=== PATIENT | female | born 1990 | race African-American/Black ===

== ENCOUNTER 2018-08-11 13:17 | Day surgery (SDC) | payer OTHER ==
[2018-08-02 13:53] VITALS: BMI 21.9
[2018-08-11] MEDS ORDERED: BUPIVACAINE HCL/PF 2.5 MG/ML - 30 ML VIAL IJ ONE (14:53)
[2018-08-11] MEDS ORDERED: MIDAZOLAM HCL 2 MG/2 ML SINGLE DOSE VIAL ONE (15:10)
[2018-08-11] MEDS ORDERED: PROPOFOL 20 ML ONE ×2 (15:18)
[2018-08-11] MEDS ORDERED: SUCCINYLCHOLINE CHLORIDE 200 MG/10 ML VIAL ONE (15:18)
[2018-08-11] MEDS ORDERED: LIDOCAINE HCL/PF 2% SDV 5ML VIAL ONE (15:19)
[2018-08-11] MEDS ORDERED: DEXAMETHASONE SOD PHOSPHATE 4 MG/1 ML VIAL ONE (15:19)
[2018-08-11] MEDS ORDERED: ONDANSETRON 4 MG/2 ML VIAL ONE ×2 (15:19→17:00)
[2018-08-11] MEDS ORDERED: methylPREDNISolone ACET (DEPO) 40 MG/1 ML VIAL ONE (16:14)
[2018-08-11] MEDS ORDERED: BENZOIN/ALOE VERA/STORAX/TOLU 58 ML BOTTLE ONE (16:22)
[2018-08-11] MEDS ORDERED: PROMETHAZINE HCL 25 MG/1 ML VIAL IVPB PRN (16:44)
[2018-08-11] MEDS ORDERED: ONDANSETRON 4 MG/2 ML VIAL IVPUSH PRN (16:44)
[2018-08-11] MEDS ORDERED: oxyCODONE HCL 5 MG TABLET PO PRN ×2 (16:44)
--- NOTE | 2018-08-11 16:47 | PN ---
Progress Note (short form) - Note Progress Note: 27F s/p surgical arthroscopy RIGHT knee, partial medial meniscectomy POD #0. -Pain control: Celebrex & Percocet PRN. -Incentive spirometry. -No chemical DVT PPx. -WBAT RLE. -Keep dressing clean & dry. -Cane vs crutches. -f/u in [facility] [place] [facility] on Tuesday08/18/2017; call for appointment; . Jesus Albarado MD (Orthopaedic Surgery).
--- NOTE | 2018-08-11 16:50 | OP ---
Operative Note - Note: Operative Date: 08/11/18 Pre-Operative Diagnosis: Right knee medial meniscus tear Operation: Right knee: 1. Surgical arthroscopy. 2. Partial medial meniscectomy Findings: Right knee: bucket-handle medial meniscus tear Tourniquet Pressure: 250mmHg Tourniquet Time: 33 minutes Post-Operative Diagnosis: Same as Pre-op Surgeon: Jesus Albarado Anesthesiologist/RELOCATION COORDINATOR: Adriano Hodgson Anesthesia: General, Local Estimated Blood Loss (mls): 0 Fluid Volume Replaced (mls): 650 (Crystalloid) Operative Report Dictated: Yes
[2018-08-11] MEDS ORDERED: KETOROLAC TROMETHAMINE 30 MG/1 ML VIAL ONE (17:05)
[2018-08-11] MEDS ORDERED: KETOROLAC TROMETHAMINE 30 MG/1 ML VIAL IVPUSH ONE (17:05)
[2018-08-11] MEDS ORDERED: oxyCODONE HCL 5 MG TABLET ONE (18:01)
[2018-08-11 18:16] VITALS: TEMP 98
[2018-08-11 19:47] VITALS: BP 118/83; PULSE 69
[2018-08-12] MEDS ORDERED: PRENATAL VITAMINS W/ FOLIC ACID TABLET (FP) PO SCH (10:00)
[2018-08-12] MEDS ORDERED: NORETHINDRONE 0.35 MG PO SCH (10:00)
[2018-08-12] MEDS ORDERED: CHOLECALCIFEROL (VITAMIN D3) 1,000 UNIT TABLET (FP) PO SCH (10:00)
--- NOTE | 2018-08-14 09:49 | OP ---
Date of Operation: 08/11/2018 Surgeon: Jesus Albarado MD Pre-Operative Diagnosis: Right knee medial meniscus tear Post-Operative Diagnosis: Right knee medial meniscus tear Surgical Procedure: Right knee: 1. Surgical arthroscopy 2. Partial medial meniscectomy Findings: Right knee bucket-handle medial meniscus tear. No concerning cartilage damage in any of the 3 compartments. Anesthesia: General, LMA. Position: Supine. Incision: Standard anteromedial & anterolateral knee arthroscopy portals. Tourniquet Pressure: 250mmHg. Tourniquet Time: 33 minutes. Estimated Blood Loss: 0cc. Intravenous Fluid: 650cc crystalloid. Specimens: None. Drains: None. Complications: None. Urine output: None. Bacteriology: None. Transfusions: None. Closure: 3-0 Biosyn. Indications: The patient was indicated for a surgical arthroscopy of the right knee with a partial medial meniscectomy to facilitate improved motion and mobilization, and to prevent complications associated with a sedentary lifestyle. The patient was identified in the holding area by her armband. A long discussion was held with the patient regarding the risks, benefits and alternatives of the above-named procedure. Risks include but are not limited to: pain, bleeding, infection, damage to surrounding structures (including nerves, blood vessels, skin, ligaments, tendons and bone), wound complications, need for further surgery, blood clots, myocardial infarction, pulmonary embolism, anaesthesia complications, compartment syndrome, limb loss, limp, loss of function, and . Benefits as mentioned above. Alternatives include no surgery. All questions were answered. The patient understood and agreed to the procedure. Informed consent was obtained, witnessed and verified. The patients correct operative limb - the right lower extremity - was marked, and the patient was taken to the operating room after being seen by the anesthesia and nursing staff. Procedure: The patient was brought into the operating room, placed on the OR table and secured with a safety strap. Consent and the operative site was again verified with the patient and nursing and anaesthesia staff. Anaesthesia was then administered without complication. 2g IV Ancef were administered. A time out was done led by me, the attending surgeon. The patient was positioned with all bony prominences well padded, a tourniquet was placed proximally on the right thigh and set to 250mmHg. The right thigh was secured in a well-padded leg pacheco. The operative limb was prepped in standard sterile fashion using betadine prep & scrub, wiped off with alcohol, and then DuraPrep applied. The operative limb was then free draped. Time out was again done, the limb was exsanguinated using an Esmarch, the tourniquet was inflated, and the case began. Surface anatomy of the knee was drawn, marking the patella, patellar tendon, and medial & lateral joint lines. With the knee flexed to 45 degrees, a standard anterolateral arthroscopy portal was made using an 11 blade. A blunt trocar was then inserted into the knee at the same angle as the incision. The blunt trocar was then slipped into the suprapatellar pouch as the knee was slowly extended. The trocar was removed through its overlying canula, and the arthroscope was inserted in its place. The fluid inflow, which had already been primed, was then attached to the canula along with the outflow suction tubing. The knee was then insufflated with normal saline solution. The suprapatellar pouch was then inspected with no evidence of synovitis. The articular surfaces of the patellofemoral joint were intact with no concerning evidence of chondromalacia. Next, the arthroscope was delivered into the medial gutter of the knee as the knee was slowly flexed. No loose bodies were seen. With gentle valgus force applied to the knee, the arthroscope was slipped into the medial compartment. The articular surfaces of the medial femoral condyle & medial tibial plateau were intact with healthy appearing cartilage. The anterior horn and body of the medial meniscus appeared intact, but a tear of the posterior horn was seen. Next, an 18-gauge spinal needle was used to plan an anteromedial portal. With the correct position and working trajectory verified, the spinal needle was removed, and an 11 blade was utilized to create a standard anteromedial arthroscopy portal. A blunt trocar was then inserted via the anteromedial portal into the medial compartment of the knee under direct arthroscopic visualization via the anterolateral portal. A probe was inserted via the anteromedial portal demonstrating the instability of the meniscus tear in the white-white zone of the posterior horn of the medial meniscus. A large bucket handle meniscus fragment was retrieved using the probe. This fragment was displaced behind the tibial plateau. The meniscal root and capsular attachments were intact, as also determined by the probe. The probe was used to inspect the superior and inferior surfaces of the medial meniscus and no other derangement was identified. A motorized 3.5mm shaver was then inserted via the anteromedial portal and the meniscus tear was gently trimmed back to a stable peripheral rim. Next, the arthroscope was delivered into the intercondylar notch. The ACL was visualized and appeared intact. The probe was used to demonstrate the ACLs stability. The PCL was not visualized. Gentle varus stress was applied to the knee as the arthroscope was delivered into the lateral compartment of the knee. The cartilage of the lateral femoral condyle and lateral tibial plateau appeared healthy. The lateral meniscus was intact, The arthroscope was then delivered into the lateral gutter of the knee where no loose bodies were seen. The arthroscope was then returned to the suprapatellar pouch as the knee was gently extended. The knee was irrigated with 2-3L of normal saline solution. All fluid was suctioned out of the knee. Hemostasis was assured, and the incisions were closed primarily using 3-0 Biosyn sutures in sub-cuticular fashion. A sterile, compressive dressing was applied. The tourniquet was released at a final time of 33 minutes. The sponge and needle counts were correct at the end of the case and I the attending was present and scrubbed throughout the case. The patient was then transferred to the recovery room in stable condition, as per the anesthesiology team, having tolerated the procedure well. Intra-operative photographs were captured using the arthroscope at numerous steps throughout the case. MD BLANCA Willis/[id number] MTDD
== END 2018-08-11 19:55 | disposition home or self-care (01) ==
LOC: FASU 13:17
PROVIDERS: ATTEND Orthopaedic Surgery Adult Reconstructive Orthopaedic Surgery
PROC: 0SBC4ZZ Excision of Right Knee Joint, Percutaneous Endoscopic Approach (ICD-10-PCS; principal; 2018-08-11 15:55)
DX: S83.211A Bucket-handle tear of medial meniscus, current injury, right knee, initial encounter (principal); X58.XXXA Exposure to other specified factors, initial encounter; Y93.9 Activity, unspecified; Y92.9 Unspecified place or not applicable
CPT/HCPCS: 84703; 94760